=== PATIENT | male | born 1975 | race Caucasian/White ===

== ENCOUNTER 2018-06-26 14:15 | Outpatient (RCR) | payer OTHER | END 2018-07-30 | disposition home or self-care (01) | LOC: WSPT | DX: S46.011D Strain of muscle(s) and tendon(s) of the rotator cuff of right shoulder, subsequent encounter (principal); X50.0XXA Overexertion from strenuous movement or load, initial encounter; Z79.899 Other long term (current) drug therapy ==

== ENCOUNTER → 2018-07-17 | Outpatient (CLI) | payer OTHER | LOC: COL.RAD 14:00 | DX: M75.101 Unspecified rotator cuff tear or rupture of right shoulder, not specified as traumatic (principal); S43.491A Other sprain of right shoulder joint, initial encounter; M75.111 Incomplete rotator cuff tear or rupture of right shoulder, not specified as traumatic | CPT/HCPCS: A9585; Q9967 ==

== ENCOUNTER 2018-12-10 16:15 | Outpatient (RCR) | payer OTHER | END 2018-12-15 | disposition home or self-care (01) | LOC: WSPT | DX: Z48.89 Encounter for other specified surgical aftercare (principal); S43.439A Superior glenoid labrum lesion of unspecified shoulder, initial encounter; S46.0 Injury of muscle(s) and tendon(s) of the rotator cuff of shoulder ==

== ENCOUNTER 2018-12-30 16:48 | Outpatient (RCR) | payer OTHER | END 2019-03-28 18:11 | disposition home or self-care (01) | LOC: WSPT 16:48 | DX: Z48.89 Encounter for other specified surgical aftercare (principal); S43.439A Superior glenoid labrum lesion of unspecified shoulder, initial encounter ==